=== PATIENT | male | born 1960 | race African-American/Black ===

== ENCOUNTER 2020-09-30 15:12 | Emergency (ER) | payer MEDICARE, OTHER ==
[~2020-09-30] VITALS: Ht 180.3 cm; Wt 102.2 kg
[2020-09-30] MEDS ORDERED: NS IV 1000 ML 1,000 ML IV STA ×2 (15:38→20:08)
--- NOTE | 2020-09-30 15:45 | ED General ---
General Stated Complaint: WEAKNESS IN LEGS | FATIGUE Source of Information: Patient, Family History of Present Illness Date Seen by Provider: Sep 30, 2020 Time Seen by Provider: 15:14 Initial Comments 60-year-old male presenting with family from attending a today. He does have a history of diabetes and some breathing problems as well as sleep apnea. He states that he was feeling dizzy and weak at the and did fall due to dizziness and his legs feeling weak. After the luncheon they were heading back to [place] but his family felt that he was getting more sleepy and not acting right so they stopped here in the emergency department. He states he has had a cough for several days but denies any fever or chills. He denies having pain anywhere. He denies any nausea or vomiting. His blood sugar here was 106. He is somnolent and falling asleep during the exam Associated Systoms: No Chest Pain; Cough; No Diaphoresis, No Fever/Chills, No Headaches, No Loss of Appetite, No Malaise, No Nausea/Vomiting, No Rash, No Seizure; Shortness of Air; No Syncope; Weakness (general) Allergies and Home Medications Allergies Coded Allergies: No Known Drug Allergies (Unverified , 09/30/20) Patient Home Medication List Home Medication List Reviewed: Yes Review of Systems Review of Systems Constitutional: No chills, No diaphoresis; dizziness (for several days); No fever; weakness EENTM: no symptoms reported Respiratory: see HPI, short of breath; No stridor Cardiovascular: No chest pain, No palpitations Gastrointestinal: no symptoms reported; No nausea, No vomiting Genitourinary: no symptoms reported Musculoskeletal: no symptoms reported Skin: no symptoms reported Psychiatric/Neurological: Weakness (general weakness and fatigue) Hematologic/Lymphatic: No Symptoms Reported Past Pqpbnwu-Hhpqew-Sdxisj Hx Past Med/Social Hx: Reviewed Nursing Past Med/Soc Hx Past Medical History Respiratory: Yes Sleep Apnea Cardiac: Yes Hypertension Endocrine: Yes Diabetes, Non-Insulin dep Physical Exam Vital Signs Vital Signs - First Documented 09/30/20 15:20 Temp 36.8 Pulse 104 Resp 20 B/P (MAP) 95/45 (62) Pulse Ox 93 O2 Delivery Nasal Cannula O2 Flow Rate 2.50 Capillary Refill : Height, Weight, BMI Height: '" Weight: lbs. oz. kg; BMI Method: General Appearance: No Apparent Distress, WD/WN, Other (somnolent) HEENT: PERRL/EOMI, Pharynx Normal Neck: Full Range of Motion, Normal Inspection, Non Tender, Supple Respiratory: Chest Non Tender, Lungs Clear, Normal Breath Sounds, No Accessory Muscle Use, No Respiratory Distress Cardiovascular: Regular Rate, Rhythm, Normal Peripheral Pulses Gastrointestinal: Normal Bowel Sounds, No Pulsatile Mass, Non Tender, Soft Extremity: Normal Capillary Refill, Normal Inspection, No Pedal Edema Neurologic/Psychiatric: Oriented x3, Normal Mood/Affect, kettle tender II-XII Norm as Tested, Other (somnolent and falls asleep easily. awakens to voice) Skin: Normal Color, Warm/Dry Focused Exam Lactate Level 09/30/20 18:50: Lactic Acid Level 2.76*H 09/30/20 21:11: Lactic Acid Level 2.13*H Lactic Acid Level Laboratory Tests Test 09/30/20 18:50 09/30/20 21:11 Lactic Acid Level 2.76 MMOL/L (0.50-2.00) *H 2.13 MMOL/L (0.50-2.00) *H Progress/Results/Core Measures Suspected Sepsis SIRS Temperature: Pulse: Respiratory Rate: Laboratory Tests 09/30/20 15:30: White Blood Count 5.5 Blood Pressure / Mean: 09/30/20 18:50: Lactic Acid Level 2.76*H 09/30/20 21:11: Lactic Acid Level 2.13*H Laboratory Tests 09/30/20 15:30: Creatinine 1.25, Platelet Count 370, Total Bilirubin 0.2 09/30/20 15:45: INR Comment 1.0 Results/Orders Lab Results Laboratory Tests Test 09/30/20 15:27 09/30/20 15:30 09/30/20 15:45 09/30/20 15:50 Range/Units Glucometer 106 70-110 MG/DL White Blood Count 5.5 4.3-11.0 10^3/uL Red Blood Count 4.28 L 4.35-5.85 10^6/uL Hemoglobin 13.0 L 13.3-17.7 G/DL Hematocrit 39 L 40-54 % Mean Corpuscular Volume 90 80-99 FL Mean Corpuscular Hemoglobin 30 25-34 PG Mean Corpuscular Hemoglobin Concent 34 32-36 G/DL Red Cell Distribution Width 14.6 H 10.0-14.5 % Platelet Count 370 130-400 10^3/uL Mean Platelet Volume 9.9 7.4-10.4 FL Immature Granulocyte % (Auto) 0 % Neutrophils (%) (Auto) 51 42-75 % Lymphocytes (%) (Auto) 24 12-44 % Monocytes (%) (Auto) 9 0-12 % Eosinophils (%) (Auto) 16 H 0-10 % Basophils (%) (Auto) 1 0-10 % Neutrophils # (Auto) 2.8 1.8-7.8 X 10^3 Lymphocytes # (Auto) 1.3 1.0-4.0 X 10^3 Monocytes # (Auto) 0.5 0.0-1.0 X 10^3 Eosinophils # (Auto) 0.9 H 0.0-0.3 10^3/uL Basophils # (Auto) 0.0 0.0-0.1 10^3/uL Immature Granulocyte # (Auto) 0.0 0.0-0.1 10^3/uL Neutrophils % (Manual) 51 % Lymphocytes % (Manual) 31 % Monocytes % (Manual) 3 % Eosinophils % (Manual) 13 % Basophils % (Manual) 1 % Atypical Lymphocytes 1 % Platelet Estimate ADEQUATE Blood Morphology Comment NORMAL D-Dimer 3.40 H 0.00-0.49 UG/ML Sodium Level 136 135-145 MMOL/L Potassium Level 3.7 3.6-5.0 MMOL/L Chloride Level 101 98-107 MMOL/L Carbon Dioxide Level 22 21-32 MMOL/L Anion Gap 13 5-14 MMOL/L Blood Urea Nitrogen 17 7-18 MG/DL Creatinine 1.25 0.60-1.30 MG/DL Estimat Glomerular Filtration Rate 59 BUN/Creatinine Ratio 14 Glucose Level 105 70-105 MG/DL Calcium Level 9.4 8.5-10.1 MG/DL Corrected Calcium 9.4 8.5-10.1 MG/DL Magnesium Level 1.4 L 1.6-2.4 MG/DL Total Bilirubin 0.2 0.1-1.0 MG/DL Aspartate Amino Transf (AST/SGOT) 21 5-34 U/L Alanine Aminotransferase (ALT/SGPT) 16 0-55 U/L Alkaline Phosphatase 97 40-136 U/L Troponin I < 0.30 <0.30 NG/ML Pro-B-Type Natriuretic Peptide 284.8 H <75.0 PG/ML Total Protein 6.8 6.4-8.2 GM/DL Albumin 4.0 3.2-4.5 GM/DL Prothrombin Time 12.9 12.2-14.7 SEC INR Comment 1.0 0.8-1.4 Activated Partial Thromboplast Time 28 24-35 SEC Blood Gas Puncture Site RT RADIAL Blood Gas Patient Temperature 36.8 Arterial Blood pH 7.55 H 7.37-7.43 Arterial Blood Partial Pressure CO2 26 L 35-45 MMHG Arterial Blood Partial Pressure O2 71 L 79-93 MMHG Arterial Blood HCO3 23 23-27 MMOL/L Arterial Blood Total CO2 23.5 21.0-31.0 MMOL/L Arterial Blood Oxygen Saturation 96 94-100 % Arterial Blood Base Excess 1.4 -2.5-2.5 MMOL/L Carlos Test YES-POS Blood Gas Ventilator Setting NO Blood Gas Inspired Oxygen ROOM AIR Test 09/30/20 18:50 09/30/20 21:11 Range/Units Lactic Acid Level 2.76 *H 2.13 *H 0.50-2.00 MMOL/L My Orders Orders - RENY MANDUJANO MD Accucheck Stat ONCE (09/30/20 15:22) Cbc With Automated Diff (09/30/20 15:29) Magnesium (09/30/20 15:29) Chest 1 View Ap/Pa Only (09/30/20 15:29) Ekg Tracing (09/30/20 15:29) Comprehensive Metabolic Panel (09/30/20 15:29) Protime With Inr (09/30/20 15:29) Partial Thromboplastin Time (09/30/20 15:29) O2 (09/30/20 15:29) Monitor-Rhythm Ecg Trace Only (09/30/20 15:29) Ed Iv/Invasive Line Start (09/30/20 15:29) Troponin I Fs (09/30/20 15:29) Probnp Fs (09/30/20 15:29) Arterial Blood Gas (09/30/20 15:29) Ct Head Wo (09/30/20 15:38) Ns Iv 1000 Ml (Sodium Chloride 0.9%) (09/30/20 15:38) Manual Differential (09/30/20 15:30) Ceftriaxone (Rocephin) (09/30/20 18:00) Azithromycin Tablet (Zithromax Tablet) (09/30/20 18:00) Blood Culture (09/30/20 18:00) Lactic Acid Analyzer (09/30/20 18:00) Fibrin Degradation Products (09/30/20 18:40) Ct Angio Chest W (09/30/20 19:55) Iohexol Injection (Omnipaque 350 Mg/Ml 1 (09/30/20 20:15) Received Contrast (Hold Metformin- Contr (09/30/20 20:15) Ns (Ivpb) (Sodium Chloride 0.9% Ivpb Bag (09/30/20 20:15) Ns Iv 1000 Ml (Sodium Chloride 0.9%) (09/30/20 20:08) Lorazepam Injection (Ativan Injection) (09/30/20 21:21) Medications Given in ED Current Medications Medications Dose Ordered Sig/Rhea Route Start Time Stop Time Status Last Admin Dose Admin Iohexol 125 ml ONCE ONCE IV 09/30/20 20:15 09/30/20 20:16 DC 09/30/20 20:17 125 ML Sodium Chloride 100 ml ONCE ONCE IV 09/30/20 20:15 09/30/20 20:16 DC 09/30/20 20:17 100 ML Vital Signs/I&O 09/30/20 09/30/20 09/30/20 15:20 15:30 22:14 Temp 36.8 Pulse 104 61 Resp 20 16 B/P (MAP) 95/45 (62) 109/61 Pulse Ox 93 87 96 O2 Delivery Nasal Cannula Nasal Cannula Nasal Cannula O2 Flow Rate 2.50 2.50 2.50 Capillary Refill : Progress Note #1: Progress Note Check labs as well as electrocardiogram, chest x-ray, CT head with his somnolence and dizziness. Obtain urinalysis as well as blood work. Give IV fluids for hydration and borderline hypotension. Progress Note #2: Progress Note labs show normal WBC count but his ABG shows alkalosis with mild drop in pO2 and pCO2. CXR shows Right lower lobe infiltrate. CT head no acute process. cardiac enzymes not showing acute abnormality to account for his symptoms. He does have improved blood pressure and oxygen as he gets IVF and is on supplemental oxygen. Off of Oxygen and just on room air he drops to 86% with a good wave form. Discussed with pt about treating for pneumonia and he states he follows with [facility] and sees doctors in [place]. Will check with [facility] atout admit vs transfer. Progress Note #3: Time: 18:05 Progress Note Call placed to [facility]. given information to the admission nurse. She will check with hospitalist about admit and call back. 1833 d/w Dr. Vance Love for [facility] and he accepted pt in transfer but was asking if we had D dimer or scan on patient and about Covid swab. I informed him that I can add on D dimer and check CT scan if needed while waiting on transport and that I do not have a rapid covid swab test here so normal testing is 24-48 hour turn around. 1858 pt upset that he would be waiting several hours for ambulance transport and asked about going with his family. I advised him that we have a bed and they are holding it for him but if he leaves from here now he would have a low oxygen level again and has risk for heart attack or stroke and [facility] to . He did drop to 86% on room air so he agreed to wait for EMS instead of transport with family. Progress Note #4: Time: 19:44 Progress Note D dimer and Lactic acid elevated. Give additional 1 L NS bolus for his elevated Lactic acid. Blood cultures are already drawn and antibiotics ordered off of his hypoxia and pneumonia on CXR. Order CT angio chest for elevated D dimer to check for blood clot. Progress Note #5: Time: 21:[address] angiography of chest shows lung cancer with metastatic disease and pathologic rib fractures. He did not have any PE visualized. When updating pt he reports now that he has known cancer and uses oxygen at night with his CPap but has not had it for daytime. He was just in hospital at [facility] and reports being released 2 days ago for similar issues of passing out and being dizzy. He is 98-99% on the 2.5 Lpm of supplemental oxygen by nasal cannula. Awaiting [facility] ambulance transport from [place] to take pt to [facility]. He was requesting medicine for anxiety and to help him rest so will give a dose of Ativan 0.5 mg IV. ECG Initial ECG Impression Date: Sep 30, 2020 Initial ECG Impression Time: 15:39 Initial ECG Rate: 91 Initial ECG Rhythm: Normal Sinus Initial ECG Comparisson: No Previous ECG Available Comment Normal sinus rhythm with heart rate 91 bpm. HI interval 161 ms. QT interval 366 ms with a QTc interval 451 ms. There is no acute ST elevation. There is no prior tracing available for comparison. There is global T wave flattening. Diagnostic Imaging Diagonstic Imaging: CT Plain Films/CT/US/NM/MRI: head [facility] [place] [place] NAME: ENMANUEL CHIN [facility] REC#: [id number] PT STATUS: REG ER : 1960 PHYSICIAN: RENY MANDUJANO MD ADMIT DATE: 09/30/20/ER FS Signed Date of Exam:09/30/20 CT HEAD WO PROCEDURE: CT head without contrast. TECHNIQUE: Multiple contiguous axial images were obtained through the brain without the use of intravenous contrast. Auto Exposure Controls were utilized during the CT exam to meet ALARA standards for radiation dose reduction. INDICATION: Frequent falls and lethargy. CT HEAD: CT images of the head were obtained. FINDINGS: Ventricles and sulci are within normal limits for size. There is no intracranial hemorrhage identified. There is no abnormal mass effect or shift of midline structures. IMPRESSION: Unremarkable CT of the head. Dictated by: Dictated on workstation # [id number] Dict: 09/30/20 1612 Trans: 09/30/20 1658 [id number] Interpreted by: KINGSLEY CARVAJAL MD Electronically signed by: KINGSLEY CARVAJAL MD 09/30/20 1658 Reviewed: Reviewed by Me Diagonstic Imaging: Xray Plain Films/CT/US/NM/MRI: chest Comments [facility] [place], [place] NAME: ENMANUEL CHIN [facility] REC#: [id number] PT STATUS: REG ER : 1960 PHYSICIAN: RENY MANDUJANO MD ADMIT DATE: 09/30/20/ER FS Signed Date of Exam:09/30/20 CHEST 1 VIEW AP/PA ONLY EXAMINATION: Chest radiograph, portable AP view. DATE: 09/30/2020 at 4:12 PM. INDICATION: 60-year-old male, lethargy. Recent falls. COMPARISON: None. FINDINGS: The heart size and mediastinal contours are unremarkable. There is no identified pneumothorax. There is blunting of the right lateral costophrenic angle. There are mild linear opacities in the right midlung, most likely relating to mild subsegmental atelectasis. There is also mild subsegmental atelectasis in the left lung base. IMPRESSION: Blunting of the right lateral costophrenic angle which may relate to small effusion, atelectasis, and/or infiltrate. Dictated by: Dictated on workstation # [id number] Dict: 09/30/20 1613 Trans: 09/30/20 1655 [id number] Interpreted by: NADYA ARITA MD Electronically signed by: NADYA ARITA MD 09/30/20 1655 Reviewed: Reviewed by Sc Diagonstic Imaging: CT (angiogram) Plain Films/CT/US/NM/MRI: chest Comments NAME: ENMANUEL CHIN [facility] REC#: [id number] PT STATUS: REG ER : 1960 PHYSICIAN: RENY MANDUJANO MD ADMIT DATE: 09/30/20/ER FS Draft Date of Exam:09/30/20 CT ANGIO CHEST W PROCEDURE: CT angiography of the chest with contrast, 09/30/2020. TECHNIQUE: Multiple contiguous axial images were obtained through the chest after uneventful bolus administration of intravenous contrast. 3D reconstructed CTA MIP acquisitions were also performed. Auto Exposure Controls were utilized during the CT exam to meet ALARA standards for radiation dose reduction. INDICATION: Frequent falls x2 days. Lethargy. History of prostate, osseous and lung cancer. FINDINGS: Diffuse adenopathy noted throughout the mediastinum given history suspicious for metastatic process. Left hilar adenopathy also noted. Mild bilateral axillary adenopathy present. There are no central or proximal segmental pulmonary emboli. The visualized aorta unremarkable other than mild atherosclerotic disease. There is no pericardial effusion. There is a small right pleural effusion. Tiny nodules noted in the periphery of the right lower lobe. Multiple small nodules seen in the periphery of the right middle lobe and right upper lobe with a more spiculated appearing lesion in the medial right upper lobe measuring 2.5 x 2.1 cm in size. Small adjacent satellite lesions noted. There are small nodules throughout the left lung base. Emphysematous changes noted. Visualized upper abdomen demonstrates small hypodensities within the kidneys, small for characterization. Within the osseous structures, multiple scattered sclerotic lesions seen throughout the thoracic and visualized lumbar spine with no compression deformities appreciated. Multiple sclerotic lesions seen throughout the ribs bilaterally. Similar findings in the clavicles. Sclerotic lesions noted in the right scapula. There is a large lytic lesion in an inferior left lateral rib likely with an associated pathologic fracture. A similar finding is noted in several anterolateral left ribs as well. IMPRESSION: 1. No evidence for pulmonary embolus. 2. Diffuse metastatic disease throughout the lungs with the largest spiculated lesion in the right upper lobe. An adjacent small right pleural effusion noted. 3. Mediastinal left hilar and bilateral axillary adenopathy. 4. Diffuse osseous metastasis with multiple left lateral pathologic rib fractures. 5. Other findings as above. Dictated on workstation # [id number] Dict: 09/30/202047 Trans: 09/30/202107 [facility] [id number] Interpreted by: AUSTIN DIAZ MD Electronically signed by: Reviewed: Reviewed by Me Departure Impression Primary Impression: Pneumonia Qualified Codes: J18.9 - Pneumonia, unspecified organism Additional Impressions: Hypoxia Lung mass Lymphadenopathy, hilar Metastatic lung cancer (metastasis from lung to other site) Qualified Codes: C34.91 - Malignant neoplasm of unspecified part of right bronchus or lung Primary cancer of left lung metastatic to other site Pathologic rib fracture Qualified Codes: M84.48XA - Pathological fracture, other site, initial encounter for fracture Disposition: XF T-TRM HOSP Condition: Stable Transfer Transfer Reason: Patient preference ([facility]) Time Spoke to Accepting Phy: 18:33 Transfer Progress Notes d/w Dr. Vance Love attending for [facility] and he accepted pt for transfer. He did request D dimer and possible evaluation for blood clot. Will treat for pneumonia and check D Dimer while waiting for transport. Transfer Facility: [facility] Method of Transfer: EMS Departure-Patient Inst. Referrals: LORETO GARNER MD (PCP/Family) Primary Care Physician RENY MANDUJANO MD Sep 30, 2020 15:45
[2020-09-30 15:50] LABS: HEMATOCRIT 39 % (40-54); MEAN CORPUSCULAR HEMOGLOBIN 30 PG (25-34); MEAN CORPUSCULAR VOLUME 90 FL (80-99); WHITE BLOOD COUNT 5.5 10^3/uL (4.3-11.0)
[2020-09-30 15:51] LABS: MEAN CORPUSCULAR HGB CONC 34 G/DL (32-36)
[2020-09-30 15:55] LABS: BASOPHILS % (AUTO) 1 % (0-10); EOSINOPHILS # (AUTO) 0.9 10^3/uL (0.0-0.3); EOSINOPHILS % (AUTO) 16 % (0-10); LYMPHOCYTES # (AUTO) 1.3 X 10^3 (1.0-4.0); LYMPHOCYTES % (AUTO) 24 % (12-44); MEAN PLATELET VOLUME 9.9 FL (7.4-10.4); MONOCYTES # (AUTO) 0.5 X 10^3 (0.0-1.0); MONOCYTES % (AUTO) 9 % (0-12); NEUTROPHILS # (AUTO) 2.8 X 10^3 (1.8-7.8); NEUTROPHILS % (AUTO) 51 % (42-75); PLATELET COUNT 370 10^3/uL (130-400)
[2020-09-30 16:00] LABS: ABG BASE EXCESS 1.4 MMOL/L (-2.5-2.5); ABG OXYGEN SATURATION 96 % (94-100); ABG PCO2 26 MMHG (35-45); ABG PH 7.55 (7.37-7.43); ABG PO2 71 MMHG (79-93); ABG TCO2 23.5 MMOL/L (21.0-31.0); ALLENS TEST YES-POS
[2020-09-30 16:01] LABS: PATIENT TEMP 36.8; VENTILATOR NO
[2020-09-30 16:05] LABS: INSPIRED O2 ROOM AIR
[2020-09-30 16:14] LABS: ATYPICAL LYMPHOCYTES 1 %; BASOPHILS % (MANUAL) 1 %; EOSINOPHILS % (MANUAL) 13 %; LYMPHOCYTES % (MANUAL) 31 %; MONOCYTES % (MANUAL) 3 %; NEUTROPHILS % (MANUAL) 51 %; PLATELET ESTIMATE ADEQUATE; RBC MORPH NORMAL
--- NOTE | 2020-09-30 16:14 | Diagnostic Imaging Report ---
PROCEDURE: CT head without contrast. TECHNIQUE: Multiple contiguous axial images were obtained through the brain without the use of intravenous contrast. Auto Exposure Controls were utilized during the CT exam to meet ALARA standards for radiation dose reduction. INDICATION: Frequent falls and lethargy. CT HEAD: CT images of the head were obtained. FINDINGS: Ventricles and sulci are within normal limits for size. There is no intracranial hemorrhage identified. There is no abnormal mass effect or shift of midline structures. IMPRESSION: Unremarkable CT of the head. Dictated by: Dictated on workstation # [id number]
[2020-09-30 16:21] LABS: BILIRUBIN,TOTAL 0.2 MG/DL (0.1-1.0); CALCIUM 9.4 MG/DL (8.5-10.1); CREATININE SERUM 1.25 MG/DL (0.60-1.30); MAGNESIUM 1.4 MG/DL (1.6-2.4); POTASSIUM 3.7 MMOL/L (3.6-5.0)
[2020-09-30 16:22] LABS: TOTAL PROTEIN 6.8 GM/DL (6.4-8.2)
--- NOTE | 2020-09-30 16:25 | Diagnostic Imaging Report ---
EXAMINATION: Chest radiograph, portable AP view. DATE: 09/30/2020 at 4:12 PM. INDICATION: 60-year-old male, lethargy. Recent falls. COMPARISON: None. FINDINGS: The heart size and mediastinal contours are unremarkable. There is no identified pneumothorax. There is blunting of the right lateral costophrenic angle. There are mild linear opacities in the right midlung, most likely relating to mild subsegmental atelectasis. There is also mild subsegmental atelectasis in the left lung base. IMPRESSION: Blunting of the right lateral costophrenic angle which may relate to small effusion, atelectasis, and/or infiltrate. Dictated by: Dictated on workstation # [id number]
[2020-09-30 16:26] LABS: PROTHROMBIN TIME PATIENT 12.9 SEC (12.2-14.7)
[2020-09-30] MEDS ORDERED: AZITHROMYCIN 250 MG TAB (ZITHROMAX) PO STA (18:00)
[2020-09-30] MEDS ORDERED: cefTRIAXone 1,000 MG in WATER (STERILE) FOR INJECTION 10 ML IV STA (18:00)
[2020-09-30] MEDS ORDERED: HOLD METFORMIN - RECEIVED CONTRAST 20 ML VIAL IV SCH (20:15)
[2020-09-30] MEDS ORDERED: IOHEXOL 350 MG/ML 150 ML (OMNIPAQUE 350) VIAL IV ONE (20:15)
[2020-09-30] MEDS ORDERED: NS 100 ML (IVPB) BAG IV ONE (20:15)
--- NOTE | 2020-09-30 21:09 | Diagnostic Imaging Report ---
PROCEDURE: CT angiography of the chest with contrast, 09/30/2020. TECHNIQUE: Multiple contiguous axial images were obtained through the chest after uneventful bolus administration of intravenous contrast. 3D reconstructed CTA MIP acquisitions were also performed. Auto Exposure Controls were utilized during the CT exam to meet ALARA standards for radiation dose reduction. INDICATION: Frequent falls x2 days. Lethargy. History of prostate, osseous and lung cancer. FINDINGS: Diffuse adenopathy noted throughout the mediastinum given history suspicious for metastatic process. Left hilar adenopathy also noted. Mild bilateral axillary adenopathy present. There are no central or proximal segmental pulmonary emboli. The visualized aorta unremarkable other than mild atherosclerotic disease. There is no pericardial effusion. There is a small right pleural effusion. Tiny nodules noted in the periphery of the right lower lobe. Multiple small nodules seen in the periphery of the right middle lobe and right upper lobe with a more spiculated appearing lesion in the medial right upper lobe measuring 2.5 x 2.1 cm in size. Small adjacent satellite lesions noted. There are small nodules throughout the left lung base. Emphysematous changes noted. Visualized upper abdomen demonstrates small hypodensities within the kidneys, small for characterization. Within the osseous structures, multiple scattered sclerotic lesions seen throughout the thoracic and visualized lumbar spine with no compression deformities appreciated. Multiple sclerotic lesions seen throughout the ribs bilaterally. Similar findings in the clavicles. Sclerotic lesions noted in the right scapula. There is a large lytic lesion in an inferior left lateral rib likely with an associated pathologic fracture. A similar finding is noted in several anterolateral left ribs as well. IMPRESSION: 1. No evidence for pulmonary embolus. 2. Diffuse metastatic disease throughout the lungs with the largest spiculated lesion in the right upper lobe. An adjacent small right pleural effusion noted. 3. Mediastinal left hilar and bilateral axillary adenopathy. 4. Diffuse osseous metastasis with multiple left lateral pathologic rib fractures. 5. Other findings as above. Dictated by: Dictated on workstation # [id number]
[2020-09-30] MEDS ORDERED: LORazepam INJ 2 MG/ML (ATIVAN) VIAL IVP STA (21:21)
[2020-09-30 22:14] VITALS: BP 109/61
== END 2020-09-30 22:13 | disposition short-term general hospital (02) ==
LOC: ER FS 15:15
DX: C34.92 Malignant neoplasm of unspecified part of left bronchus or lung (principal); M84.48XA Pathological fracture, other site, initial encounter for fracture; J18.9 Pneumonia, unspecified organism; R59.0 Localized enlarged lymph nodes; F41.9 Anxiety disorder, unspecified; I10 Essential (primary) hypertension; E11.9 Type 2 diabetes mellitus without complications; G47.33 Obstructive sleep apnea (adult) (pediatric); Z99.89 Dependence on other enabling machines and devices
CPT/HCPCS: 36415; 70450; 71045; 71275; 80053; 82805; 82947; 83605; 83735; 83880; 84484; 85007; 85027; 85379; 85610; 85730; 87040; 93005; 93041; 96361; 96374; 96375